=== PATIENT | male | born 1990 | race American Indian/Alaskan Native ===

== ENCOUNTER 2017-07-31 11:29 | Emergency (ER) | payer OTHER ==
[2017-07-31 11:35] VITALS: BP 136/84
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
== END 2017-07-31 16:01 | disposition home or self-care (01) ==
LOC: ED 11:29
DX: S39.012A Strain of muscle, fascia and tendon of lower back, initial encounter (principal); M54.2 Cervicalgia; F17.200 Nicotine dependence, unspecified, uncomplicated; V49.9XXA Car occupant (driver) (passenger) injured in unspecified traffic accident, initial encounter; Y93.89 Activity, other specified; Y92.89 Other specified places as the place of occurrence of the external cause; Y99.8 Other external cause status
CPT/HCPCS: 99282

== ENCOUNTER 2019-02-22 11:54 | Emergency (ER) | payer SELFPAY ==
[2019-02-22 12:09] VITALS: BP 146/100
--- NOTE | 2019-02-22 12:48 | Emergency Department Report ---
Suture/Staple Removal - HPI Chief Complaint: Laceration/Recheck/Suture Stated Complaint: STITCHES REMOVED When Sutures or [place] Placed: 8-10 Days Ago ED Review of Systems ROS: Stated complaint: STITCHES REMOVED Other details as noted in HPI Comment: All other systems reviewed and negative ED Past Medical Hx - Surgical History Additional Surgical History: right wrist - Social History Smoking Status: Never Smoker Substance Use Type: None - Medications Home Medications: Home Medications Medication Instructions Recorded Confirmed Last Taken Type cephALEXin [Keflex] 500 mg PO Q6HR #40 capsule 04/24/15 Unknown Rx Amoxicillin/K Clav Tab [Augmentin 1 tab PO Q12HR #20 tab 04/19/16 Unknown Rx 875 mg] Cyclobenzaprine [Flexeril] 10 mg PO QHS PRN #20 tablet 07/31/17 Unknown Rx Ibuprofen [Motrin 600 MG tab] 600 mg PO Q8H PRN #15 tablet 07/31/17 Unknown Rx Suture Removal Exam - Exam General: Vital signs noted. No distress. Alert and acting appropriately. Wound: No Pathologic Erythema, No Tenderness, No Drainage, No Pus, No Wound Dehiscence Other Systems: All other systems reviewed and are unremarkable. ED Course Vital Signs 02/22/19 12:08 Temperature 98.3 F Pulse Rate 76 Respiratory 16 Rate Blood Pressure 146/100 O2 Sat by Pulse 98 Oximetry Critical care attestation.: If time is entered above; I have spent that time in minutes in the direct care of this critically ill patient, excluding procedure time. ED Disposition Clinical Impression: Encounter for removal of sutures Disposition: DC-01 TO HOME OR SELFCARE Is pt being admited?: No Does the pt Need Aspirin: No Condition: Stable Instructions: Suture Removal (ED) Referrals: JUAN CHONG MD [Primary Care Provider] - 3-5 Days
== END 2019-02-22 13:03 | disposition home or self-care (01) ==
LOC: ED 11:54
DX: Z48.02 Encounter for removal of sutures (principal)